=== PATIENT | female | born 1980 | race Hispanic/Latino ===

== ENCOUNTER 2022-12-04 19:39 | Emergency (ER) | payer BC ==
--- OUTSIDE RECORDS SUMMARY | 2022-12-04 19:45 | XMS REPORT | Continuity of Care Document ---
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 71556 Family Practic e 2020-08-21 2020-08-21 Outpatient Rancho_M_WA VFP VFP [id number] [facility] 12:59:00 12:59:00 G 94057 Family Practic e 2019-10-25 2019-10-25 Outpatient Taqi_T VFP VFP [id number] [facility] 08:41:00 08:41:00 44023 Family Practic e 2019-10-19 2019-10-19 Outpatient Taqi_T VFP VFP [id number] [facility] 10:31:00 10:31:00 58850 Family Practic e 2019-10-18 2019-10-18 Guerda Taqi_T VFP [place] - [phone] [facility] 00:00:00 00:00:00 MD Gaston: [facility] Fami ly 9511 Medical - Practi porter YIN_HOU_Cypr e r Charly, [address] [address] , Ph. 2019-10-08 2019-10-08 Terry Look_D VFP [place] - [id number] [facility] 00:00:00 00:00:00 Dwayne [facility] [address] [facility] : 9511 Medical - Pract mahi Oliver VM_HOU_Cypr e riki Parks, [address] [address] , Ph. 2019-07-02 2019-07-02 Outpatient Rancho_M_WA VFP VFP [id number] [facility] 01:07:00 01:07:00 G 04916 Family Practic e 2019-07-01 2019-07-01 Outpatient Look_D VFP VFP [id number]- [facility] 05:09:00 05:09:00 26038 Family Practic e 2019-06-17 2019-06-17 Outpatient Look_D VFP VFP [id number] [facility] 10:52:00 10:52:00 43706 Family Practic e 2019-06-07 2019-06-07 Jimena Look_D VFP [place] - [phone] [facility] 00:00:00 00:00:00 [facility] [address] Family Connie Vickers - Julius buenrostro ALTERATIONS SEWER: [address] VM_HOU_Cypr e [address] (WAG), SADA Malik [address] , Ph. 2019-02-27 2019-02-27 Outpatient Look_D VFP VFP [id number] [facility] 10:03:00 10:03:00 99874 Family Practic e 2019-01-02 2019-01-02 Chito VFP [place] - [id number] [facility] 00:00:00 00:00:00 [facility] [address] Family Yvonne Practic MD: 9511 [facility], [address] [address] , Ph. 2018-07-05 2018-07-05 [facility] [place] - [id number] [facility] 00:00:00 00:00:00 [facility] [address] Family Yvonne Practic MD: 9511 Practice - e Alwaprudencio [facility] [place], [address] [address] , Ph. 2018-05-17 2018-05-17 ERICA Beckford [id number] 4 [place] 16:00:00 16:00:00 YOU [facility] YOU ans 2018-05-10 2018-05-10 [facility] [id number] [facility] 00:00:00 00:00:00 [facility] [address] Family Yvonne Practic MD: 9511 Practice - e [facility] [place]arly, [address], [place] [address] , Ph. 2017-07-02 2017-07-02 [facility] [address] [facility] 19:35:00 22:35:[address] 2017-07-02 2017-07-02 Outpatient Pradip, [place] [address] [id number] 14:35:00 17:35:00 Rashi Browning 00 Results Test Description Test Time Test Comments Results Result Comments Source Novel Coronavirus 2019 nCoV 2019-10-28 13:33:00 Test Item Value Reference Range Interpretation Comme nts Novel Coronavirus 2019 Negative Negative Test DescriptionAltru Dx COVID-19 nCoV (test code = Real-Time RT-PCR test is a lab COVID19) developedtest b ased on wooju "TaqMan" 2019-n CoV assaystargeting three SARS-CoV-2 gene s (ORF1ab, 5-protein andN-protein) a nd one positive control assay that targ ets theman RNaseP RPPH1 gene. FDA's ind ependent review of this validation is p ending. Thetest can be performed on na sopharyngeal swabs obtained fromindividuals suspected of COVID-19. This test proce dure has the following limitations:-Th e detection of viral nucleic acid is dependent uponproper specimen collec tion, handling, transportation, storage and preparation. Failure to obse rve properprocedures in any of these steps can lead to incorrectresult s with the risk of false positive or fal se negativevalues. Specimen has to be store d at 2-8*C no more than 72hours.-Altru Dx COVID-19 test is qualitative matthew t and does notprovide a quantitative va lue for the organism.-Resul ts from this test must be correlated with the clinicalhistory ,epidemiological data, and other data avai lable tothe clinician evaluating the patient.-Interference from substances that were not evaluted couldlead to er roneous results-A negative result does not exclude the possibility ofCOVID-19 infe ction. False negative test results may occ urdue to the presence of inhibitors. Matthew t results may also beaffected by l evels of organism in the specimen that a rebelow threshold detection for the test. N egative resultsshould not be used as the sole basis for diagnosis,treat ment, or other patient management deci sions. Does patient have the clinical criteria consistent with COVID-19? YIs the patient going to be discharged home? Y- CT ABD PELVIS [id number] 22:38:00 Patient Name: ANA MONTANEZ Unit No: [id number] EXAMS: CPT CODE: [id number] CT ABD PELVIS W/CONT 02129 EXAM: CT ABDOMEN AND PELVIS WITH CONTRAST INDICATION: abd pain vomiting LOCATION: H50 COMPARISON: None TECHNIQUE: CT of the abdomen and pelvis was performed with 96 mL Isovue-300 intravenous contrast. Patient's GFR is greater than 60 with a creatinine of 0.6. All CT scans are performed using radiation dose reduction technique. Technical factors are evaluated and adjusted to insure appropriatemoderation of exposure. Automated dose management technology is applied to adjust the radiation doseto minimize exposure while achieving a diagnostic quality image. FINDINGS: Thoracic: Included imagesof the lower chest demonstrate no abnormalities. Hepatobiliary: No focal liver lesion is identified.No intrahepatic or extrahepatic biliary dilatation is seen. The main portal vein is patent. Gallbladder: The gallbladder is normal. Pancreas: Unremarkable. Spleen: Unremarkable. Adrenals: Unremarkable. Kidneys: There is no evidence of renal calculus. There is no evidence of hydronephrosis of either ki dney. No solid renal lesion is identified. Bladder/Reproductive system: Evaluation of the bladder islimited, but no obvious bladder abnormality is present. There is a calcified subserosal fibroid at the uterine fundus measuring 1.4 cm. Gastrointestinal: No bowel obstruction or perienteric inflammation. The appendix is normal. Vascular: The aorta is grossly normal in appearance. Lymphatics: No enlarged lymph nodes by CT size criteria. Bones/Soft Tissues: No acute osseous findings. No ventral hernias. Peritoneum/Other: No extraluminal air. No extraluminal fluid. Name: ANA MONTANEZ [facility] Phys: [place] [address] [address] Fw : 1980 Age: 39 [place] [address] Loc: [place].ERS Exam Date: 10/18/2019 Status: REG ER PH: FAX: PAGE 1 Signed Report (CONTINUED) Patient Name: ANA MONTANEZ Unit No: [id number] EXAMS: CPT CODE: [id number] CT ABD PELVIS W/CONT 79057 <Continued> IMPRESSION: No acute abdominal or pelvic abnormalities are identified to explain vomiting and abdominal pain. Calcified subserosal uterine fibroid. at 2238 Reported and signed by: Caroline Reyes M.D. CC: Annabella Edgar NP Technologist: Santi Yanez Jr; Dena Polk CTDI: 21.22 DLP: 1058.0 Trscr Dt/Tm: 10/18/2019 (2237) by:[email or web address] Electronic Signature Date/Time: 10/18/2019 (2237)Orig Print D/T: S: 10/18/2019 (2240) Name: ANA MONTANEZ [facility] Phys: [place] [address] [address] y : 1980 Age: 39 Sex: [place] [address] Loc: [place].ERS Exam Date: 10/18/2019 Status: REG ER PH: FAX: PAGE 2 Signed ReportBASIC METABOLIC [id number] 20:52:00 Test Item Value Reference Range Interpretation Comments SODIUM (test code 139 mmol/L 135-145 N = NA) POTASSIUM (test 4.0 mmol/L 3.5-5.1 N code = K) CHLORIDE (test 105 mmol/L 98-107 N code = CL) CARBON DIOXIDE 28 mmol/L 21-32 N (test code = CO2) ANION GAP (test 10.0 2.0-16.0 N code = GAP) GLUCOSE (test code 92 mg/dL 65-99 N = GLU) BLOOD UREA 15 mg/dL 4-23 N NITROGEN (test code = BUN) GLOMERULAR >=60 max >60 The estimated FILTRATION RATE estimate ml/min glomerula r (test code = GFR) filtration rate is computed usingpatient ra ce, age (>18), sex, and serum creatinin e. If anyof the neede d data elements a re missing the Laboratory logan ot compute an estimation of t he glomerular filtration rate . CREATININE (test 0.6 mg/dL 0.6-1.5 N code = CREAT) BUN/CREATININE 25.0 12.0-20.0 H RATIO (test code = BUN/CREA) CALCIUM (test code 9.2 mg/dL 8.5-10.1 N = CA) DATE OF LAST MENSTRUAL PERIOD: 04/24/19LIVER FUNCTION [id number] 20:52:00 Test Item Value Reference Range Interpretation Comments TOTAL PROTEIN 7.9 g/dL 6.4-8.2 N (test code = PROT) ALBUMIN (test code 3.6 g/dL 3.4-5.0 N = ALB) GLOBULIN (test 4.3 g/dL 2.3-3.5 H code = GLOB) BILIRUBIN TOTAL 0.2 mg/dL 0.2-1.2 N Use of this assay is not (test code = BILT) recommend ed for patients undergoingtreat ment with Eltrombopag due to the potential for falselyelevated results. BILIRUBIN DIRECT < 0.1 mg/dL 0.0-0.3 N (test code = BILD) BILIRUBIN INDIRECT 0.1 mg/dL 0.0-0.8 N (test code = BILIND) SGOT/AST (test 15 U/L 15-37 N code = AST) SGPT/ALT (test 38 U/L 6-50 N code = ALT) ALKALINE 76 U/L 45-117 N PHOSPHATASE (test code = ALKP) DATE OF LAST MENSTRUAL PERIOD: 04/24/[id number] 20:52:00 Test Item Value Reference Range Interpretation Comments LIPASE (test code = LIP) 80 U/L 73-393 N DATE OF LAST MENSTRUAL PERIOD: 04/24/19HCG SERUM [id number] 20:52:00 Test Item Value Reference Range Interpretation Comments HCG SERUM QUAL (test code = HCGQL) NEGATIVE NEGATIVE DATE OF LAST MENSTRUAL PERIOD: 04/24/19BASIC METABOLIC [id number] 20:37:00 Test Item Value Reference Range Interpretation Comments SODIUM (test code = NA) mmol/L 135-145 POTASSIUM (test code = K) mmol/L 3.5-5.1 CHLORIDE (test code = CL) mmol/L 98-107 CARBON DIOXIDE (test code = CO2) mmol/L 21-32 ANION GAP (test code = GAP) 2.0-16.0 GLUCOSE (test code = GLU) mg/dL 65-99 BLOOD UREA NITROGEN (test code = BUN) mg/dL 4-23 GLOMERULAR FILTRATION RATE (test code ml/min >60 = GFR) CREATININE (test code = CREAT) mg/dL 0.6-1.5 BUN/CREATININE RATIO (test code = 12.0-20.0 BUN/CREA) CALCIUM (test code = CA) mg/dL 8.5-10.1 DATE OF LAST MENSTRUAL PERIOD: 04/24/19LIVER FUNCTION [id number] 20:37:00 Test Item Value Reference Range Interpretation Comments TOTAL PROTEIN (test code = PROT) g/dL 6.4-8.2 ALBUMIN (test code = ALB) g/dL 3.4-5.0 GLOBULIN (test code = GLOB) g/dL 2.3-3.5 BILIRUBIN TOTAL (test code = BILT) mg/dL 0.2-1.2 BILIRUBIN DIRECT (test code = BILD) mg/dL 0.0-0.3 BILIRUBIN INDIRECT (test code = mg/dL 0.0-0.8 BILIND) SGOT/AST (test code = AST) U/L 15-37 SGPT/ALT (test code = ALT) U/L 6-50 ALKALINE PHOSPHATASE (test code = U/L 45-117 ALKP) DATE OF LAST MENSTRUAL PERIOD: 04/24/[id number] 20:37:00 Test Item Value Reference Range Interpretation Comments LIPASE (test code = LIP) U/L 73-393 DATE OF LAST MENSTRUAL PERIOD: 04/24/19HCG SERUM [id number] 20:37:00 Test Item Value Reference Range Interpretation Comments HCG SERUM QUAL (test code = HCGQL) NEGATIVE NEGATIVE DATE OF LAST MENSTRUAL PERIOD: 04/24/19CBC W/AUTO [id number] 20:27:00 Test Item Value Reference Range Interpretation Comments WHITE BLOOD CELL (test code = 9.0 10 3/uL 4.5-11.0 N WBC) RED BLOOD CELL (test code = 4.73 10 6/uL 3.50-5.50 N RBC) HEMOGLOBIN (test code = HGB) 13.6 g/dL 12.0-16.0 N HEMATOCRIT (test code = HCT) 42.8 % 37.0-55.0 N MEAN CELL VOLUME (test code = 91 fL 81-102 N MCV) MEAN CELL HGB (test code = 28.8 pg 26.0-34.0 N MCH) MEAN CELL HGB CONCENTRATION 31.8 g/dL 31.0-37.0 N (test code = MCHC) RED CELL DISTRIBUTION WIDTH 12.8 % 11.5-14.5 N (test code = RDW) PLATELET COUNT (test code = 343 10 3/uL 150-400 N PLT) MEAN PLATELET VOLUME (test 9.5 fL 9.0-12.6 N code = MPV) NEUTROPHIL % (test code = NT%) 65.2 % 33.0-76.0 N IMMATURE GRANULOCYTE % (test 0.2 % 0.0-1.0 N code = IG%) LYMPHOCYTE % (test code = LY%) 23.5 % 14.0-56.4 N MONOCYTE % (test code = MO%) 8.1 % 0.0-12.9 N EOSINOPHIL % (test code = EO%) 2.2 % 0.0-7.0 N BASOPHIL % (test code = BA%) 0.8 % 0-2.0 N NUCLEATED RBC % (test code = 0.0 % 0-0.2 N NRBC%) NEUTROPHIL # (test code = NT#) 5.88 10 3/uL 1.5-7.0 N IMMATURE GRANULOCYTE # (test 0.020 x10 3/uL 0.000-0.100 N code = IG#) LYMPHOCYTE # (test code = LY#) 2.12 10 3/uL 1.50-4.00 N MONOCYTE # (test code = MO#) 0.73 10 3/uL 0.20-0.80 N EOSINOPHIL # (test code = EO#) 0.20 10 3/uL 0.0-0.5 N BASOPHIL # (test code = BA#) 0.07 10 3/uL 0.0-0.1 N UA RFLX MICR CULT IF [id number] 18:46:00 Test Item Value Reference Range Interpretation Comments UA COLOR (test code = COLU) YELLOW YELLOW UA APPEARANCE (test code = CLEAR CLEAR APPU) UA GLUCOSE DIPSTICK (test NEGATIVE NEGATIVE code = DGLUU) UA BILIRUBIN DIPSTICK (test NEGATIVE NEGATIVE code = BILU) UA KETONE DIPSTICK (test code NEGATIVE NEGATIVE = KETU) UA SPECIFIC GRAVITY (test 1.016 1.005-1.025 N code = SGU) UA BLOOD DIPSTICK (test code 1+ NEGATIVE A = MANE) UA PH DIPSTICK (test code = 6.0 5.0-8.0 BECCA) UA PROTEIN DIPSTICK (test NEGATIVE NEGATIVE code = PROU) UA UROBILINOGEN DIPSTICK NEGATIVE EU/dL 0.1-0.2 (test code = URO) UA NITRITE DIPSTICK (test NEGATIVE NEGATIVE code = JAVIER) UA LEUKOCYTE ESTERASE NEGATIVE NEGATIVE DIPSTICK (test code = LEUU) UA MICROSCOPIC NEEDED? (test YES NO A code = UAMICRO) UA WBC (test code = WBCU) 0-2 /hpf 0-3 UA RBC (test code = RBCU) 3-5 /hpf 0-3 A UA BACTERIA (test code = RARE /HPF NEGATIVE BACU) UA SQUAMOUS CELLS (test code RARE /HPF FEW = SQU) UA MUCUS (test code = MUCU) OCCASIONAL /lpf Indication for culture: Dysuria/FrequencyHCG SERUM [id number] 07:38:00 Test Item Value Reference Range Interpretation Comments HCG SERUM QUAL (test code = HCGQL) NEGATIVE NEGATIVE A Comprehensive metabolic 2000 panel - Serum or [id number] 05:08:00 Test Item Value Reference Range Interpretation Comments glucose (test code = 92 mg/dL 65-99 glucose) urea nitrogen (BUN) (test 12 mg/dL 7-25 code = urea nitrogen (BUN)) creatinine (test code = 0.47 mg/dL 0.50-1.10 L creatinine) eGFR non-afr. bahraini 128 mL/min/1.73m2 > or = 60 (test code = eGFR non-afr. bahraini) eGFR (test 148 mL/min/1.73m2 > or = 60 code = eGFR ) BUN/creatinine ratio (test 26 (calc) 6-22 H code = BUN/creatinine ratio) sodium (test code = sodium) 137 mmol/L 135-146 potassium (test code = 4.0 mmol/L 3.5-5.3 potassium) chloride (test code = 104 mmol/L 98-110 chloride) carbon dioxide (test code = 26 mmol/L 20-32 carbon dioxide) calcium (test code = 9.6 mg/dL 8.6-10.2 calcium) protein, total (test code = 6.8 g/dL 6.1-8.1 protein, total) albumin (test code = 4.1 g/dL 3.6-5.1 albumin) globulin (test code = 2.7 g/dL (calc) 1.9-3.7 globulin) albumin/globulin ratio 1.5 (calc) 1.0-2.5 (test code = albumin/globulin ratio) bilirubin, total (test code 0.7 mg/dL 0.2-1.2 = bilirubin, total) alkaline phosphatase (test 61 U/L 33-115 code = alkaline phosphatase) AST (test code = AST) 16 U/L 10-30 ALT (test code = ALT) 22 U/L 6-29 [id number] 22:27:00 Test Item Value Reference Range Interpretation Comments FNE U Preg (test code Negative (07/02/17 5:27 = FNE U Preg) PM) Leeanne Prince Notes Date/Time Note Provider Source 2019-10-18 23:12:00-00:00 [facility] ([facility]) EMERGENCY PROVIDER REPORT REPORT#:[id number] REPORT STATUS: Signed DATE:10/18/19 TIME: 2311 PATIENT: ANA MONTANEZ UNIT #: [id number] ROOM: BED: AGE: 39 SEX: F PCP PHYS: Guerda Feldman MD SERVICE AUTHOR: Annabella Edgar ALTERATIONS SEWER * ALL edits or amendments must be made on the [employer] document * HPI-Abd Pain F Under 40 General Initial Greet Date/Time 10/18/19 182 Presentation Chief Complaint Abdominal pain, Nausea, Vomiting mild Free Text HPI Notes Free Text HPI Notes 39-year-old female with no past medical history presents the ER with complaint of abdominal pain that start ed last night at 8 PM today. Patient states she has some nausea and diarrhea. Denies any fever, coug h, shortness of breath or difficulty breathing. Aidan vasquez was seen by her doctor today and got a outpatient order for an ultrasound tomorrow but had increas ing pain and presents the ER tonight for evaluation. Risk-Abd Pain F Under 40 )( Ectopic Risk factors reviewed Review of Systems ROS Statements All systems rev neg except as marked. Focused Review of Systems Constitutional Denies: Chills, Fatigue, Fever, Lethargy, Malais e, Recent wt loss, Weakness - generalized. Respiratory Denies: Cough, non-productive, Cough, productive , Dyspnea on exertion, Hemoptysis, Parox nocturnal dyspnea, Pleuritic p ain, Shortness of breath, Wheezing. Cardiovascular Denies: Chest pain, Dyspnea on exertion, Edema, Orthopnea, Palpitations, Parox nocturnal dyspnea, Syncope. GI Reports: Abdominal pain, Diarrhea, Nausea, Vomit ing. Female Denies: Dysuria, Flank pain, Hematuria, Incontin ence, Nocturia, Pelvic pain, , Urinary frequency, Urinary urgency, Ur ination decreased, Urination increased, Vaginal bleeding - abnl, Vaginal disc harge. Musculoskeletal Denies: Back pain, Extremity pain, Extremity swe lling, Joint pain, Joint swelling, Lumbar pain, Myalgia, Neck pain, Thora cic pain. Past Medical History - Adult Stated Complaint ABD PAIN Allergies Coded Allergies: No Known Allergies (10/18/19) Pt reports no significant: Past medical history Additional Surgical History , BTL tummy tuck Physical Exam Vital Signs Vital Signs First Documented: Result Date Time Pulse Ox 99 10/17 1958 B/P 137/83 10/17 1958 B/P Mean 101 10/17 1958 O2 Delivery Room air 10/17 1958 Temp 37.2 10/17 1958 Pulse 74 10/17 1958 Resp 18 10/17 1958 Last Documented: Result Date Time Pulse Ox 99 10/17 1958 B/P 137/83 10/17 1958 B/P Mean 101 10/17 1958 O2 Delivery Room air 10/17 1958 Temp 37.2 10/17 1958 Pulse 74 10/17 1958 Resp 18 10/17 1958 Review of Vital Signs Reviewed, Vital signs norm al Focused PE General/Const General/Const Awake, Alert, No acute distress MS Head Head Atraumatic, Normocephalic Eyes Eyes Atraumatic, PERRL, EOMI Ears/Nose/Throat Ears/Nose/Throat Atraumatic, Airway patent, Muc ous membranes moist, Pharynx NL Resp/Chest Respiratory/Chest Atraumatic, Breath sounds NL, Breath sounds = bilat, No respiratory distress, No rales, No rhonchi, No w heezing, No retractions Cardiovascular Cardiovascular Heart rate NL, Regular rhythm, H eart sounds NL, No gallop, No murmurs, No rubs Abdomen/GI Abdomen/GI Atraumatic, Soft, McBurney's non-ten fanny, No guarding, No rebound, BS normoactive, No distention, No hernia , No palpable mass, No pulsatile mass, periumbilical tenderness, no guarding or rebound MS Back Back Atraumatic, Inspection NL, Full range of m otion, Painless range of motion, Non-tender, No midline vertebral tend, N o paraspinal tenderness, No muscle spasm Skin Skin Warm, Dry Neurologic Neurologic Oriented X3, Speech NL, No motor def icits, No sensory deficits Interpretation Diagnostics Lab Results Interpretation Results Laboratory Tests 10/18/19 2012: [Embedded Image Not Available] Laboratory Tests: 10/17 1820 Urines Urine Color (YELLOW) YELLOW Urine Appearance (CLEAR) CLEAR Urine pH (5.0 - 8.0) 6.0 Ur Specific [place] (1.005 - 1.025) 1.016 Urine Protein (NEGATIVE) NEGATIVE Urine Glucose (UA) (NEGATIVE) NEGATIVE Urine Ketones (NEGATIVE) NEGATIVE Urine Blood (NEGATIVE) 1+ H Urine Nitrite (NEGATIVE) NEGATIVE Urine Bilirubin (NEGATIVE) NEGATIVE Urine Urobilinogen (0.1 - 0.2 EU/dL) NEGATIVE Ur Leukocyte Esterase (NEGATIVE) NEGATIVE Urine RBC (0 - 3 /hpf) 3-5 H Urine WBC (0 - 3 /hpf) 0-2 Ur Squamous Epith Cells (FEW /HPF) RARE Urine Bacteria (NEGATIVE /HPF) RARE Urine Mucus (/lpf) OCCASIONAL 10/18 2011 Chemistry Sodium (135 - 145 mmol/L) 139 Potassium (3.5 - 5.1 mmol/L) 4.0 Chloride (98 - 107 mmol/L) 105 Carbon Dioxide (21 - 32 mmol/L) 28 Anion Gap (2.0 - 16.0) 10.0 BUN (4 - 23 mg/dL) 15 Creatinine (0.6 - 1.5 mg/dL) 0.6 Glomerular Filtr Rate (>60 ml/min) >=60 max est imate BUN/Creatinine Ratio (12.0 - 20.0) 25.0 H Glucose (65 - 99 mg/dL) 92 Calcium (8.5 - 10.1 mg/dL) 9.2 Total Bilirubin (0.2 - 1.2 mg/dL) 0.2 Direct Bilirubin (0.0 - 0.3 mg/dL) < 0.1 Indirect Bilirubin (0.0 - 0.8 mg/dL) 0.1 AST (15 - 37 U/L) 15 ALT (6 - 50 U/L) 38 Total Alk Phosphatase (45 - 117 U/L) 76 Total Protein (6.4 - 8.2 g/dL) 7.9 Albumin (3.4 - 5.0 g/dL) 3.6 Globulin (2.3 - 3.5 g/dL) 4.3 H Lipase (73 - 393 U/L) 80 Serum HCG, Qual (NEGATIVE) NEGATIVE Hematology WBC (4.5 - 11.0 10 3/uL) 9.0 RBC (3.50 - 5.50 10 6/uL) 4.73 Hgb (12.0 - 16.0 g/dL) 13.6 Hct (37.0 - 55.0 %) 42.8 MCV (81 - 102 fL) 91 MCH (26.0 - 34.0 pg) 28.8 MCHC (31.0 - 37.0 g/dL) 31.8 RDW (11.5 - 14.5 %) 12.8 Plt Count (150 - 400 10 3/uL) 343 MPV (9.0 - 12.6 fL) 9.5 Neut % (Auto) (33.0 - 76.0 %) 65.2 Lymph % (Auto) (14.0 - 56.4 %) 23.5 [place] % (Auto) (0.0 - 12.9 %) 8.1 Eos % (Auto) (0.0 - 7.0 %) 2.2 Baso % (Auto) (0 - 2.0 %) 0.8 Neut # (Auto) (1.5 - 7.0 10 3/uL) 5.88 Lymph # (Auto) (1.50 - 4.00 10 3/uL) 2.12 [place] # (Auto) (0.20 - 0.80 10 3/uL) 0.73 Eos # (Auto) (0.0 - 0.5 10 3/uL) 0.20 Baso # (Auto) (0.0 - 0.1 10 3/uL) 0.07 Abs Immat Gran (auto) (0.000 - 0.100 x10 3/uL) 0.020 Immature Gran % (0.0 - 1.0 %) 0.2 Nucleated RBC % (0 - 0.2 %) 0.0 Recent Impressions: CAT SCAN - CT ABD PELVIS W/CONT 10/17 2214 Report Impression - Status: SIGNED Entered: 10/18/20195 IMPRESSION: No acute abdominal or pelvic abnormalities are i dentified to explain vomiting and abdominal pain. Calcified subserosal uterine fibroid. Impression By: CristóbalEBVincent - Caroline Reyes M.D. Re-Evaluation MDM Free Text MDM Notes Free Text MDM Notes Patient staffed with Dr. Luna Lab work is essentially normal CT shows a fibroid otherwise negative COVID swab will be done Patient will be discharged follow-up with your d octor in 2 to 3 days. Self quarantine until you have the COVID results . Zofran as needed for nausea Tramadol as needed for severe pain Bentyl as needed for pain Rest and drink plenty of fluids Return to emergency room if increased pain, feve r, no tolerate fluids, or any further problems. )( Re-Evaluation/Progress #1 )( Re-Eval Status Improved ED Course Medication(s) Ordered Medication(s) Ordered: Central Nervous System Agents Sig/Edi Start time Last Medication Dose Route Stop Time Status Admin Ketorolac 30 MG X1ED STA 10/17 1821 DC 10/17 Tromethamine IV 10/17 Diagnostic Agents Sig/Edi Start time Last Medication Dose Route Stop Time Status Admin Iopamidol 0 .STK-MED ONE 10/18 2203 DC .ROUTE Electrolytic, Caloric, And Kathy Sig/Edi Start time Last Medication Dose Route Stop Time Status Admin Sodium Chloride 1,000 ML X1ED STA 10/17 182 DC 10/17 IV 10/17 Gastrointestinal Drugs Sig/Edi Start time Last Medication Dose Route Stop Time Status Admin Ondansetron HCl 4 MG X1ED PRN PRN 10/17 183 AC 10/17 IV 11/16 [id number] Patient Discharge Departure Vital Signs/Condition Vital Signs First Documented: Result Date Time Pulse Ox 99 10/17 1958 B/P 137/83 10/17 1958 B/P Mean 101 10/17 1958 O2 Delivery Room air 10/17 1958 Temp 37.2 10/17 1958 Pulse 74 10/17 1958 Resp 18 10/17 1958 Last Documented: Result Date Time Pulse Ox 99 10/17 1958 B/P 137/83 10/17 1958 B/P Mean 101 10/17 1958 O2 Delivery Room air 10/17 1958 Temp 37.2 10/17 1958 Pulse 74 10/17 1958 Resp 18 10/17 1958 All vital signs available at the time of this en try have been reviewed. Condition Stable Clinical Impression Clinical Impression Primary Impression: Abdominal pain Secondary Impressions: Gastroenteritis, Suspecte d COVID-19 virus infection, Uterine fibroid Disposition Decision Discharge )( Discharged to Home Yes )( Time 2328 Discharge/Care Plan Counseled Regarding Diagnosi s, Lab results, Imaging studies, Need for follow-up, When to return to ED Referrals Guerda Feldman MD (PCP/Family) Electronically Signed by Annabella Edgar ALTERATIONS SEWER on 0 10/18/19 at 2340 RPT #:[id number] END OF REPORT 2019-10-18 23:12:00-00:00 [facility] ([facility]) EMERGENCY PROVIDER REPORT REPORT#:[id number] REPORT STATUS: Signed DATE:10/18/19 TIME: 2311 PATIENT: ANA MONTANEZ UNIT #: [id number] ROOM: BED: AGE: 39 SEX: F PCP PHYS: Guerda Feldman MD SERVICE AUTHOR: Annabella Edgar ALTERATIONS SEWER * ALL edits or amendments must be made on the [employer]/computer document * Annabella Edgar 10/18/192311: HPI-Abd Pain F Under 40 Presentation Chief Complaint Abdominal pain, Nausea, Vomiting mild Free Text HPI Notes Free Text HPI Notes 39-year-old female with no past medical history presents the ER with complaint of abdominal pain that start ed last night at 8 PM today. Patient states she has some nausea and diarrhea. Denies any fever, coug h, shortness of breath or difficulty breathing. Patilety vasquez was seen by her doctor today and got a outpatient order for an ultrasound tomorrow but had increas ing pain and presents the ER tonight for evaluation. Risk-Abd Pain F Under 40 )( Ectopic Risk factors reviewed Review of Systems ROS Statements All systems rev neg except as marked. Focused Review of Systems Constitutional Denies: Chills, Fatigue, Fever, Lethargy, Malais e, Recent wt loss, Weakness - generalized. Respiratory Denies: Cough, non-productive, Cough, productive , Dyspnea on exertion, Hemoptysis, Parox nocturnal dyspnea, Pleuritic p ain, Shortness of breath, Wheezing. Cardiovascular Denies: Chest pain, Dyspnea on exertion, Edema, Orthopnea, Palpitations, Parox nocturnal dyspnea, Syncope. GI Reports: Abdominal pain, Diarrhea, Nausea, Vomit ing. Female Denies: Dysuria, Flank pain, Hematuria, Incontin ence, Nocturia, Pelvic pain, , Urinary frequency, Urinary urgency, Ur ination decreased, Urination increased, Vaginal bleeding - abnl, Vaginal disc harge. Musculoskeletal Denies: Back pain, Extremity pain, Extremity swe lling, Joint pain, Joint swelling, Lumbar pain, Myalgia, Neck pain, Thora cic pain. Past Medical History - Adult Stated Complaint ABD PAIN Allergies Coded Allergies: No Known Allergies (10/18/19) Pt reports no significant: Past medical history Additional Surgical History , BTL tummy tuck Physical Exam Vital Signs Vital Signs First Documented: Result Date Time Pulse Ox 99 10/17 1958 B/P 137/83 10/17 1958 B/P Mean 101 10/17 1958 O2 Delivery Room air 10/17 1958 Temp 37.2 10/17 1958 Pulse 74 10/17 1958 Resp 18 10/17 1958 Last Documented: Result Date Time Pulse Ox 98 10/17 2345 B/P 132/85 10/17 2345 B/P Mean 100 10/17 2345 O2 Delivery Room air 10/17 2345 Pulse 75 10/17 2345 Resp 16 10/17 2345 Temp 37.2 10/17 1958 Review of Vital Signs Reviewed, Vital signs norm al Focused PE General/Const General/Const Awake, Alert, No acute distress MS Head Head Atraumatic, Normocephalic Eyes Eyes Atraumatic, PERRL, EOMI Ears/Nose/Throat Ears/Nose/Throat Atraumatic, Airway patent, Muc ous membranes moist, Pharynx NL Resp/Chest Respiratory/Chest Atraumatic, Breath sounds NL, Breath sounds = bilat, No respiratory distress, No rales, No rhonchi, No w heezing, No retractions Cardiovascular Cardiovascular Heart rate NL, Regular rhythm, H eart sounds NL, No gallop, No murmurs, No rubs Abdomen/GI Abdomen/GI Atraumatic, Soft, McBurney's non-ten fanny, No guarding, No rebound, BS normoactive, No distention, No hernia , No palpable mass, No pulsatile mass, periumbilical tenderness, no guarding or rebound MS Back Back Atraumatic, Inspection NL, Full range of m otion, Painless range of motion, Non-tender, No midline vertebral tend, N o paraspinal tenderness, No muscle spasm Skin Skin Warm, Dry Neurologic Neurologic Oriented X3, Speech NL, No motor def icits, No sensory deficits Interpretation Diagnostics Lab Results Interpretation Results Laboratory Tests 10/18/19 2012: [Embedded Image Not Available] Laboratory Tests: 10/17 1820 Urines Urine Color (YELLOW) YELLOW Urine Appearance (CLEAR) CLEAR Urine pH (5.0 - 8.0) 6.0 Ur Specific [place] (1.005 - 1.025) 1.016 Urine Protein (NEGATIVE) NEGATIVE Urine Glucose (UA) (NEGATIVE) NEGATIVE Urine Ketones (NEGATIVE) NEGATIVE Urine Blood (NEGATIVE) 1+ H Urine Nitrite (NEGATIVE) NEGATIVE Urine Bilirubin (NEGATIVE) NEGATIVE Urine Urobilinogen (0.1 - 0.2 EU/dL) NEGATIVE Ur Leukocyte Esterase (NEGATIVE) NEGATIVE Urine RBC (0 - 3 /hpf) 3-5 H Urine WBC (0 - 3 /hpf) 0-2 Ur Squamous Epith Cells (FEW /HPF) RARE Urine Bacteria (NEGATIVE /HPF) RARE Urine Mucus (/lpf) OCCASIONAL 10/18 2011 Chemistry Sodium (135 - 145 mmol/L) 139 Potassium (3.5 - 5.1 mmol/L) 4.0 Chloride (98 - 107 mmol/L) 105 Carbon Dioxide (21 - 32 mmol/L) 28 Anion Gap (2.0 - 16.0) 10.0 BUN (4 - 23 mg/dL) 15 Creatinine (0.6 - 1.5 mg/dL) 0.6 Glomerular Filtr Rate (>60 ml/min) >=60 max est imate BUN/Creatinine Ratio (12.0 - 20.0) 25.0 H Glucose (65 - 99 mg/dL) 92 Calcium (8.5 - 10.1 mg/dL) 9.2 Total Bilirubin (0.2 - 1.2 mg/dL) 0.2 Direct Bilirubin (0.0 - 0.3 mg/dL) < 0.1 Indirect Bilirubin (0.0 - 0.8 mg/dL) 0.1 AST (15 - 37 U/L) 15 ALT (6 - 50 U/L) 38 Total Alk Phosphatase (45 - 117 U/L) 76 Total Protein (6.4 - 8.2 g/dL) 7.9 Albumin (3.4 - 5.0 g/dL) 3.6 Globulin (2.3 - 3.5 g/dL) 4.3 H Lipase (73 - 393 U/L) 80 Serum HCG, Qual (NEGATIVE) NEGATIVE Hematology WBC (4.5 - 11.0 10 3/uL) 9.0 RBC (3.50 - 5.50 10 6/uL) 4.73 Hgb (12.0 - 16.0 g/dL) 13.6 Hct (37.0 - 55.0 %) 42.8 MCV (81 - 102 fL) 91 MCH (26.0 - 34.0 pg) 28.8 MCHC (31.0 - 37.0 g/dL) 31.8 RDW (11.5 - 14.5 %) 12.8 Plt Count (150 - 400 10 3/uL) 343 MPV (9.0 - 12.6 fL) 9.5 Neut % (Auto) (33.0 - 76.0 %) 65.2 Lymph % (Auto) (14.0 - 56.4 %) 23.5 [place] % (Auto) (0.0 - 12.9 %) 8.1 Eos % (Auto) (0.0 - 7.0 %) 2.2 Baso % (Auto) (0 - 2.0 %) 0.8 Neut # (Auto) (1.5 - 7.0 10 3/uL) 5.88 Lymph # (Auto) (1.50 - 4.00 10 3/uL) 2.12 [place] # (Auto) (0.20 - 0.80 10 3/uL) 0.73 Eos # (Auto) (0.0 - 0.5 10 3/uL) 0.20 Baso # (Auto) (0.0 - 0.1 10 3/uL) 0.07 Abs Immat Gran (auto) (0.000 - 0.100 x10 3/uL) 0.020 Immature Gran % (0.0 - 1.0 %) 0.2 Nucleated RBC % (0 - 0.2 %) 0.0 Recent Impressions: CAT SCAN - CT ABD PELVIS W/CONT 10/17 2214 Report Impression - Status: SIGNED Entered: 10/18/20192240 IMPRESSION: No acute abdominal or pelvic abnormalities are i dentified to explain vomiting and abdominal pain. Calcified subserosal uterine fibroid. Impression By: CristóbalEBVincent - Caroline Reyes M.D. Re-Evaluation MDM Free Text MDM Notes Free Text MDM Notes Patient staffed with Dr. Luna Lab work is essentially normal CT shows a fibroid otherwise negative COVID swab will be done Patient will be discharged follow-up with your d octor in 2 to 3 days. Self quarantine until you have the COVID results . Zofran as needed for nausea Tramadol as needed for severe pain Bentyl as needed for pain Rest and drink plenty of fluids Return to emergency room if increased pain, feve r, no tolerate fluids, or any further problems. )( Re-Evaluation/Progress #1 )( Re-Eval Status Improved ED Course Medication(s) Ordered Medication(s) Ordered: Central Nervous System Agents Sig/Edi Start time Last Medication Dose Route Stop Time Status Admin Ketorolac 30 MG X1ED STA 10/17 1820 DC 10/17 Tromethamine IV 10/17 Diagnostic Agents Sig/Edi Start time Last Medication Dose Route Stop Time Status Admin Iopamidol 0 .STK-MED ONE 10/18 2203 DC .ROUTE Electrolytic, Caloric, And Kathy Sig/Edi Start time Last Medication Dose Route Stop Time Status Admin Sodium Chloride 1,000 ML X1ED STA 10/17 1820 DC 10/17 IV 10/17 Gastrointestinal Drugs Sig/Edi Start time Last Medication Dose Route Stop Time Status Admin Ondansetron HCl 4 MG X1ED PRN PRN 10/17 1829 AC 10/17 IV 11/16 Patient Discharge Departure Vital Signs/Condition Vital Signs First Documented: Result Date Time Pulse Ox 99 10/17 1958 B/P 137/83 10/17 1958 B/P Mean 101 10/17 1958 O2 Delivery Room air 10/17 1958 Temp 37.2 10/17 1958 Pulse 74 10/17 1958 Resp 18 10/17 1958 Last Documented: Result Date Time Pulse Ox 98 10/17 2345 B/P 132/85 10/17 2345 B/P Mean 100 10/17 2345 O2 Delivery Room air 10/17 2345 Pulse 75 10/17 2345 Resp 10/17 Temp 37.2 10/17 1958 All vital signs available at the time of this en try have been reviewed. Condition Stable Clinical Impression Clinical Impression Primary Impression: Abdominal pain Secondary Impressions: Gastroenteritis, Suspecte d COVID-19 virus infection, Uterine fibroid Disposition Decision Discharge )( Discharged to Home Yes )( Time 2328 Discharge/Care Plan Counseled Regarding Diagnosi s, Lab results, Imaging studies, Need for follow-up, When to return to ED Referrals Guerda Feldman MD (PCP/Family) Alejandro Luna 10/22/19 1200: HPI-Abd Pain F Under 40 General Initial Greet Date/Time 10/18/19 1820 Patient Discharge Departure Supervising Physician Note MidLv/Doc Saw Pt 2 I have personally interviewed and examined the p atient. All charts, labs, and imaging studies were reviewe d. I agree with this PA/hand stapler findings, exam and plan. 39-year-old female with suspected COVID infectio n and abdominal cramping with unremarkable work-up. COVID pending. Nontoxic-ap pearing and tolerating oral intake. Abdomen benign. Has good follow-up and s ocial support. Electronically Signed by Annabella Edgar NP on 0 10/18/19 at 2340 at 1201 RPT #:[id number] END OF REPORT 2019-07-10 10:34:00-00:00 [id number] [place] [address] PATIENT NAME: ANA MONTANEZ ADMIT DATE: 07/10/19 ACCOUNT NO: [id number] ROOM NO: AGE: 38 REPORT TYPE: OPERATIVE REPORT SEX: F ADMITTING PHYSICIAN: ATTENDING PHYSICIAN:Urbano Traylor MD OPERATION DATE: 07/10/2019 PREOPERATIVE DIAGNOSES: 1. Deviated nasal septum. 2. Turbinate hypertrophy. 3. Chronic sinusitis. POSTOPERATIVE DIAGNOSES: 1. Deviated nasal septum. 2. Turbinate hypertrophy. 3. Chronic sinusitis. TITLE OF PROCEDURES: 1. Septoplasty. 2. Bilateral turbinate reduction - submucosal re section. 3. Bilateral endoscopic maxillary antrostomies w ith removal of tissue. 4. Bilateral endoscopic sphenoidotomies with rem oval of tissue. 5. Bilateral endoscopic frontal sinus exploratio n. SURGEON: Urbano Traylor MD COMMERCIAL LOAN ADMINISTRATOR: None. ANESTHESIA: General. INDICATIONS: This is a 38-year-old female with l ongstanding history of nasal obstruction, congestion, recurrent sinusitis who has been treated in the past with nasal corticosteroids, oral antihistamines as well as numerous broad-spectrum oral antibiot ics, all of which are detailed in the office chart. The patient presents today for the above elective procedures. She was informed of the operative risks as well as other therapeu tic options as noted in the office chart. ESTIMATED BLOOD LOSS: See anesthesia notes. INTRAVENOUS FLUID: See anesthesia notes. ANESTHESIA: General anesthesia. COMPLICATIONS: None. CONDITION: Stable taken to recovery room. PATIENT NAME: ANA MONTANEZ FINDINGS: She had mild mucosal thickening in the frontal and sphenoid sinuses as well as the ethmoid sinuses. She had moderate mucosal thickening of the maxillary sinuses. The patient had a marked righ t nasal septal deviation and right nasal spur, taylor bullosa enlarged the le ft middle turbinate. The patient had [id number] ed middle and inferior turbinate hypertrophy. There were no masses seen in the nasopharynx. PROCEDURE IN DETAIL: Prior to scheduling surgery , the patient (or guardian or family) was counseled on operative risks and alternative options and was given detailed postoperative instructions. Risks discu ssed include bleeding, infection, required revision surgery, external nasal deformity, nasal crusting, CSF leak, change of smell or loss of smell, tooth or lip numbness, intracranial infection, persistent nasal obstruction, septal perforation, excessive tearing, blindness, and any effects from the anes thesia including stroke, heart attack, respiratory distress, and . The patient was brought into the operating room and placed in a supine position. After intubation and general anesthesia, the nose was prepped using 5-10 cc of 1% lidocaine with epinephrine into the septum an d turbinates. The patient was then draped in the usual fashion. The se ptum and turbinates were inspected and found to have the findings noted above. Using a nasal retractor, an incision was carried down from the caudal border of the septum on the right side using a 15-blade an d iris scissors until the cartilaginous septum was identified. A complete submucoperichondrial and periosteal flap was the crea federico on the left side using an elevator. An incision was then created approximately 1 cm posterior to the anterior border of the cartilaginous septum. A complete submucoperichon drial and periosteal flap was then created on the opposite right side using an elevator. A swivel knife was then utilized to remove the anterior cartilagino us septum while preserving approximately 1 cm of cartil age anteriorly and superiorly to maintain nasal tip support. The septal cartilage was kept in normal saline. Dorsal bone scissors was then used to release the osseous septum supe riorly and inferiorly. The osseous septum was then jaleesa melanie. The [place] was utilized to remove the remaining superior septum to avoid a CSF leak. T he maxillary crest was then addressed by lifting the mucoperiosteum using an elevator and then creating sagittal cuts using a 4 mm chisel. The septum wa s reinspected and found to be straight. Suction Bovie was then used to cauteri ze any brisk bleeding. Attention was then placed on the turbinates. 2 c c of 1% lidocaine with epinephrine were injected into both infe rior turbinates. The elevator was used out fracture both turbinates . A small stab incision was made with a 15 blade on the caudal end of each turbinate to the turbinat e bone. The elevator was then used to elevate the soft tissue matrix from the turbinate bone. The biting forceps was then used through the stab incision to remove the turbinate bone without violating the outsid e mucosa. Suction cautery was then used to stop any active bleeding as well as to cauterize any poly poidal or degenerated mucosal turbinate tissue. An elevator was then used to l ateralize both turbinates. The sphenoid ostium was addr essed to remove obstruction and restore normal sinus drainage. Beginning on the right side us ing a zero degree endoscope, a suction was placed into the sphenoet hmoid recess. A freer elevator was used to mobilize the middle turbinate laterally. Under en doscopic visualization, the tip of the PATIENT NAME: ANA MONTANEZ suction was advanced to the area of the natural ostium of the sphenoid sinus. The ostium was cannulated an d was aspirated to remove any pathologic secretions. The same procedure was used on the opposite left side. Attention was then directed to the maxillary sin us ostium. Beginning on the right side, the middle turbinate was medialized with a freer elevator. The introducer catheter was next placed within the m iddle meatus under endoscopic guidance using a zero degree endoscope. The curve tip of the introducer catheter was positioned within the inferior aspect of the ethmoidal infundibulum. A lighted guide wire was advanced through the intr oducer catheter and directed through the obstructed maxillary sinus ostium. T he wire was coiled within the maxillary sinus. A balloon catheter was advanced over the guide wire. The balloon was positioned to sp an the maxillary ostium and then was inflated for a few seconds. Thereafter the balloon, guide wire and introducer were removed and the maxillary sinus ostium was examined with an endoscope. The ostium was significantly enlarged and the preoperative obst ruction had been relieved. A curved suction was placed through the di lated ostium and pathologic secretions were removed. The same procedure was used on the opposite left side. Attention was then directed to the frontal sinus/recess region. Beginning on the right side, the introducer catheter was carefull y positioned in the ethmoidal pre-recess leading to the fr ontal sinus. The lighted guide wire was advanced and manipulated to advance through the front al recess and enter the frontal sinus. The lighted wire was coiled within the sinus and visualized clearly in the forehead. The balloon catheter was then advanced over the wire to position the balloon within the frontal recess. The balloon w as inflated, held for a few seconds, deflated and then removed. Using an end oscope, the out flow track of the frontal sinus was examin ed. The track appeared to be significantly enlarged and the preoperative obstruction relieved. The s yoseph procedure was used on the opposite left side. The nose was irrigated sever al times and then inspected with the endoscopes for any active bleeding. Two 4-0 chromic sutures wer e used to close the incision. Garcia splints covered with Bactroban ointment wa s placed on both sides to support the septum then sutu red into place. A drip pad was also placed. The case was then turned over to anesthesia for extubatio n. The patient tolerated procedure well without com plication. The sponge and instrument count was correct. The patien t was taken to recovery room in stable condition. The patient was given follow- up in one week, detailed postoperative instructions, and prescriptions for antibiotics and pain control. Dictated By: JEAN PIERRE Osman for Steph Simmons WT: OP:ZRYLEY/DIANNE/HEENA Conf#: [id number]#: [id number] Authenticated by JEAN PIERRE Osman On 07/17/2019 04:40:10 PM Authenticated by Urbano Traylor MD On 07/23/2019 01 :03:03 PM PATIENT NAME: ANA MONTANEZ Electronically Signed by Urbano Traylor MD on 07/22 at 1303 Electronically Signed by JEAN PIERRE Osman on at 1303 PATIENT NAME: ANA MONTANEZ
[2022-12-04] MEDS ORDERED: MORPHINE 4 MG/ML SYR ONE ×2 (19:57→20:55)
[2022-12-04] MEDS ORDERED: CYCLOBENZAPRINE 10 MG TAB ONE (20:07)
[2022-12-04] MEDS ORDERED: ONDANSETRON 4 MG/2 ML VIAL ONE (20:55)
[2022-12-04] MEDS ORDERED: KETOROLAC 30 MG/ML INJ ONE (20:55)
--- NOTE | 2022-12-04 22:48 | RAD REPORT ---
EXAM DESCRIPTION: RAD - Foot Left 3 View - 12/04/2022 10:41 pm CLINICAL HISTORY: Left Foot pain FINDINGS: No fracture or dislocation is seen. A radiopaque foreign body is not seen
[2022-12-04] MEDS ORDERED: FENTANYL CITR 100 MCG/2 ML ONE (22:59)
--- NOTE | 2022-12-04 23:11 | EDPHYS ---
Physician Documentation [facility] Name: Tasia Mace Age: 42 yrs Sex: Female : 1980 Arrival Date: 12/04/2022 Time: 19:39 Bed 5 Private MD: ED Physician Dimitrios Morales HPI: 12/04 19:48 This 42 yrs old Female presents to ER via EMS with complaints of Stingray sting. rt 19:48 Patient presents to the ED with likely stingray sting. Patient was at [place], [place] when she was stung on the left foot laterally. Denies other injury, other acute complaints. Symptoms are aching nature, nonradiating, no other aggravating or elevating factors. [place]HALT SMOOTHER: 19:49 LMP 11/27/2022 vc1 Historical: - Allergies: 19:47 No Known Allergies; vc1 - Home Meds: 19:47 Omeprazole Oral [Active]; vc1 - PMHx: 19:47 acid reflux; vc1 - PSHx: 19:47 None; vc1 - Immunization history:: Client reports receiving the 2nd dose of the Covid vaccine. - Social history:: Smoking status: Patient denies any tobacco usage or history of. - Family history:: not pertinent. ROS: 19:48 MS/extremity: Positive for pain, Negative for injury or acute deformity. rt 19:48 Cardiovascular: Negative for chest pain, palpitations, and edema, Respiratory: Negative for shortness of breath, cough, wheezing, and pleuritic chest pain, Abdomen/GI: Negative for abdominal pain, nausea, vomiting, diarrhea, and constipation, Skin: Negative for injury, rash, and discoloration, Neuro: Negative for headache, weakness, numbness, tingling, and seizure, Psych: Negative for depression, anxiety, suicide ideation, homicidal ideation, and hallucinations. Exam: 19:48 Constitutional: This is a well developed, well nourished patient who is awake, alert, rt and in no acute distress. Head/Face: Normocephalic, atraumatic. Chest/axilla: Normal chest wall appearance and motion. Nontender with no deformity. No lesions are appreciated. Cardiovascular: Regular rate and rhythm with a normal S1 and S2. No gallops, murmurs, or rubs. Normal PMI, no JVD. No pulse deficits. Respiratory: Lungs have equal breath sounds bilaterally, clear to auscultation and percussion. No rales, rhonchi or wheezes noted. No increased work of breathing, no retractions or nasal flaring. Abdomen/GI: Soft, non-tender, with normal bowel sounds. No distension or tympany. No guarding or rebound. No evidence of tenderness throughout. Skin: Warm, dry with normal turgor. Normal color with no rashes, no lesions, and no evidence of cellulitis. Neuro: Awake and alert, GCS 15, oriented to person, place, time, and situation. Cranial nerves II-XII grossly intact. Motor strength 5/5 in all extremities. Sensory grossly intact. Cerebellar exam normal. Normal gait. Psych: Awake, alert, with orientation to person, place and time. Behavior, mood, and affect are within normal limits. 19:48 Musculoskeletal/extremity: Small puncture wound laterally to the left foot, no appreciable swelling, no erythema, pulses, motor, sensation and. Vital Signs: 19:41 Weight 74.84 kg; Height 5 ft. 1 in. ; Pain 10/10; vc1 20:02 BP 131 / 69; Pulse 92; Resp 16; Pulse Ox 95% on R/A; Pain 10/10; jb4 21:13 BP 132 / 69; Pulse 60; Resp 16; Pulse Ox 95% on R/A; jb4 22:30 BP 126 / 74; Pulse 65; Resp 16; Pulse Ox 98% on R/A; jb4 19:41 Body Mass Index 31.18 (74.84 kg, 154.94 cm) vc1 19:41 Pain Scale: Adult vc1 20:02 Pain Scale: Adult jb4 MDM: 19:43 Patient medically screened. rt 12/05 03:08 Differential diagnosis: Stingray sting, jellyfish sting, retained jeb. Data reviewed: rt vital signs, nurses notes, radiologic studies. I considered the following discharge prescriptions or medication management in the emergency department Medications were administered in the Emergency Department. See MAR. Independent interpretation of the following test(s) in the Emergency Department X-Ray: My interpretation is No foreign body seen on interpretation of the x-ray images. Test considered but Not performed: CT: No suspicion for compartment syndrome, abscess, CT scan not indicated. Counseling: I had a detailed discussion with the patient and/or guardian regarding: the historical points, exam findings, and any diagnostic results supporting the discharge/admit diagnosis, radiology results, the need for outpatient follow up, to return to the emergency department if symptoms worsen or persist or if there are any questions or concerns that arise at home. Response to treatment: the patient's symptoms have markedly improved after treatment. 12/04 21:26 Order name: Foot Left 3 View XRAY; Complete Time: 22:51 rt Administered Medications: 12/04 19:52 Drug: morphine IM 4 mg Route: IM; Site: right deltoid; jb4 20:00 Drug: Cyclobenzaprine PO 10 mg Route: PO; jb4 20:51 Drug: morphine IVP or IV 4 mg Route: IVP; Infused Over: 4 mins; Site: right antecubital;jb4 20:51 Drug: Ondansetron IVP 4 mg Route: IVP; Site: right antecubital; jb4 20:51 Drug: Ketorolac IVP 15 mg Route: IVP; Site: right antecubital; jb4 22:57 Drug: fentaNYL (PF) IVP 100 mcg Route: IVP; Site: right antecubital; jb4 Disposition Summary: 12/04/22 23:10 Discharge Ordered Location: Home rt Problem: new rt Symptoms: have improved rt Condition: Stable rt Diagnosis - Marine envenomation by stingray rt Followup: rt - With: Private Physician - When: 2 - 3 days - Reason: Discharge Instructions: - Discharge Summary Sheet rt - [employer] Injury rt Forms: - Medication Reconciliation Form rt - Thank You Letter rt - Antibiotic Education rt - Prescription Opioid Use rt - Patient Portal Instructions rt - Leadership Thank You Letter rt Prescriptions: - Cyclobenzaprine 10 mg Oral Tablet - take 1 tablet by ORAL route every 8 hours As needed; 12 tablet; Refills: 0, rt Product Selection Permitted - Tramadol 50 mg Oral Tablet - take 1 tablet by ORAL route every 8 hours as needed; 12 tablet; Refills: 0, rt Product Selection Permitted Signatures: Dispatcher [employer] Jose Roberto Sellers RN RN jb4 Nancy Jaramillo RN RN vc1 Dimitrios Morales MD MD rt
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
[2022-12-04 23:56] VITALS: BP 126/74; O2SAT 98
== END 2022-12-04 23:39 | disposition home or self-care (01) ==
LOC: ER 19:39
DX: T63.511A Toxic effect of contact with stingray, accidental (unintentional), initial encounter (principal)
CPT/HCPCS: 73630; 96375; 96372; 96374; 99284; J3010; J2405